=== PATIENT | female | born 1970 | race Caucasian/White ===

== ENCOUNTER 2018-10-07 08:39 | Emergency (ER) | payer OTHER ==
[~2018-10-07] VITALS: Ht 167.6 cm; Wt 70.3 kg
[~2018-10-07 08:39] MED LIST: LEVO75TA7 PO; MOTRIN; THYROXINE
[2018-10-07 08:44] VITALS: BP_SYST 138
[2018-10-07] MEDS ORDERED: NACL 0.9% 1,000 ML IV ONE ×2 (08:44→08:45)
[2018-10-07] MEDS ORDERED: ASPIRIN 81 MG TAB.CHEW PO ONE (08:45)
[2018-10-07 09:07] LABS: BASOPHILS % (AUTO) 0.5 % (0.0-2.0); EOSINOPHILS # (AUTO) 0.2 K/uL (0.0-0.4); EOSINOPHILS % (AUTO) 2.1 % (0.0-4.0); HEMOGLOBIN 13.6 g/dL (12.0-16.0); LYMPHOCYTES # (AUTO) 1.1 K/uL (1.0-5.5); LYMPHOCYTES % (AUTO) 13.1 % (20.5-51.5); MEAN CORPUSCULAR HEMOGLOBIN 30 pg (27-31); MEAN CORPUSCULAR HGB CONC 33 % (32-36); MEAN CORPUSCULAR VOLUME 90 fL (79.0-98.0); MONOCYTES # (AUTO) 0.4 K/uL (0.0-1.0); MONOCYTES % (AUTO) 4.7 % (1.7-9.3); NEUTROPHILS # (AUTO) 6.7 K/uL (1.8-7.7); NEUTROPHILS % (AUTO) 79.6 % (40.0-70.0); PLATELET COUNT (AUTO) 264 K/uL (130-430); RED BLOOD CELL COUNT(AUTO) 4.54 MIL/uL (4.2-6.2); RED CELL DISTRIBUTION WIDTH 12.1 % (9.0-15.0); WHITE BLOOD COUNT (AUTO) 8.4 K/uL (4.8-10.8)
[2018-10-07 09:16] LABS: CALCIUM 9.5 mg/dL (8.4-11.0); CREATININE 0.82 mg/dL (0.55-1.30); POTASSIUM 3.8 mmol/L (3.5-5.1)
[2018-10-07 09:22] LABS: PROTHROMBIN TIME 9.9 SECS (9.5-12.5); TOTAL BILIRUBIN 0.3 mg/dL (0.0-1.0)
[2018-10-07] MEDS ORDERED: MAG HYDROX/AL HYDROX/SIMETH 30 ML, BELLADONNA ALKALOIDS/PHENOBARB 10 ML, LIDOCAINE VISC... PO ONE ×3 (09:30)
[2018-10-07 10:23] VITALS: BP_SYST 131
== END 2018-10-07 10:23 | disposition home or self-care (01) ==
LOC: SED 08:39
DX: R00.2 Palpitations (principal); K21.9 Gastro-esophageal reflux disease without esophagitis; E03.9 Hypothyroidism, unspecified
CPT/HCPCS: 80053; 82550; 83690; 84443; 85025; 85610; 85730; 84484; 36415; 93005; 71045; 99284; 96360; 96361; 86677; J2001; J7030